=== PATIENT | male | born 1995 | race Hispanic/Latino ===

== ENCOUNTER 2017-07-18 19:23 | Emergency (ER) | payer OTHER, SELFPAY ==
[2017-07-18] MEDS ORDERED: Adacel (T-DAP) 0.5 ML VIAL ONE (20:22)
--- NOTE | 2017-07-18 20:30 | RAD ---
LEFT HAND: 07/18/17 Three views. HISTORY: Fall with injury to left hand. Pain. Carpals appear intact. Metacarpals and phalanges appear intact. IMPRESSION: No acute fracture identified. POS: [facility]
[2017-07-18] MEDS ORDERED: Acetaminophen 500 MG TAB ONE (20:45)
== END 2017-07-18 20:55 | disposition home or self-care (01) ==
LOC: SCSER 19:23
DX: T23.222A Burn of second degree of single left finger (nail) except thumb, initial encounter (principal); J45.909 Unspecified asthma, uncomplicated; X11.8XXA Contact with other hot tap-water, initial encounter
CPT/HCPCS: 90471; 90715

== ENCOUNTER 2018-03-16 19:15 | Emergency (ER) | payer OTHER, SELFPAY ==
[2018-03-16] MEDS ORDERED: Ondansetron HCl/PF 4 MG/2 ML Vial ONE (19:46)
[2018-03-16 19:57] LABS: #Basophils 0.2 thou/uL (0.0-0.2); #Monocytes 0.6 thou/uL (0.11-0.59); #Neutrophils 16.7 thou/uL (1.40-6.50); %Eosinophils 0.1 % (0.0-10.0); %Lymphocytes 5.3 % (28.0-48.0); %Monocytes 3.3 % (0.0-4.0); %Neutrophils 90.4 % (31.0-61.0); Hemoglobin 17.8 g/dL (14.0-18.0); Mean Corpuscular HGB CONC 34.3 g/dL (32.0-36.0); Mean Corpuscular Hemoglobin 28.9 pg (25.0-35.0); Mean Corpuscular Volume 84.1 fL (78.0-98.0); Mean Platelet Volume 9.2 fL (7.4-10.4); Platelet Count 246 thou/uL (130-400); RBC Distribution Width 10.4 % (11.5-14.5); Red Blood Cell (RBC) Count 6.16 mill/uL (4.00-5.20); White Blood Cell (WBC) Count 18.5 thou/uL (4.8-10.8)
[2018-03-16 20:11] LABS: ALT (SGPT) 13 U/L (8-55); AST (SGOT) 18 U/L (5-34); Albumin 5.5 g/dL (3.5-5.0); Alkaline Phosphatase 115 U/L (Less than 750); Anion Gap 21 mmol/L (10-20); BUN (Urea Nitrogen) 22 mg/dL (8.9-20.6); Bilirubin, Total 1.2 mg/dL (0.2-1.2); CK (CPK) 202 U/L (30-200); Calc. Creatinine Clearance 0 mL/min (70-130); Calcium 10.8 mg/dL (7.8-10.44); Carbon Dioxide 24 mmol/L (22-29); Chloride 93 mmol/L (98-107); Estimated GFR-MDRD 45; Glucose 126 mg/dL (70-105); Potassium 3.7 mmol/L (3.5-5.1); Protein, Total 9.5 g/dL (6.0-8.3); Sodium 134 mmol/L (136-145)
== END 2018-03-16 21:12 | disposition home or self-care (01) ==
LOC: SCSER 19:15
DX: T67.3XXA Heat exhaustion, anhydrotic, initial encounter (principal); J45.909 Unspecified asthma, uncomplicated; X30.XXXA Exposure to excessive natural heat, initial encounter
CPT/HCPCS: 80053; 82550; 85025; 96361; 96374; J2405

== ENCOUNTER 2023-08-13 19:38 | Emergency (ER) | payer BC, SELFPAY | END 2023-08-13 21:39 | disposition home or self-care (01) | LOC: ERS 19:38 | DX: S56.912A Strain of unspecified muscles, fascia and tendons at forearm level, left arm, initial encounter (principal); X50.0XXA Overexertion from strenuous movement or load, initial encounter | CPT/HCPCS: 36416 ==